=== PATIENT | female | born 1965 | race Caucasian/White ===

== ENCOUNTER 2017-11-29 17:18 | Emergency (ER) | payer MEDICARE ==
[~2017-11-29] VITALS: Ht 162.6 cm; Wt 81.6 kg
[2017-11-29 17:25] VITALS: BP 163/127
== END 2017-11-29 19:28 | disposition home or self-care (01) ==
LOC: ED 19:22
DX: S40.011A Contusion of right shoulder, initial encounter (principal); S50.11XA Contusion of right forearm, initial encounter; F17.200 Nicotine dependence, unspecified, uncomplicated; W22.8XXA Striking against or struck by other objects, initial encounter; Y93.89 Activity, other specified; Y92.099 Unspecified place in other non-institutional residence as the place of occurrence of the external cause; Y99.8 Other external cause status
CPT/HCPCS: 99284

== ENCOUNTER 2019-03-25 10:58 | Inpatient (IN) | payer MEDICARE, MEDICAID ==
[~2019-03-25] VITALS: Ht 162.6 cm; Wt 72.0 kg
--- NOTE | 2019-03-25 11:45 | NUR ---
PT HERE WITH C/O DIABETIC ULCER ON FOOT WITH + PURULENT DRAINAGE. PT ARRIVED TO ROOM VIA WHEELCHAIR, PT CONFUSED AND UNSTEADY GAIT, INTERMITTENTLY DOZING OFF. FS TAKEN BY THIS RN ON HOSPITAL GLUCOMETER REVEALED FS OF 409. PT STATES PO MEDS TO CONTROL DM. PT STATES WOUND ON FOOT X 3 WEEKS, DRAINAGE X 2 DAYS, FEVER X 2 DAYS. PT DRESSED IN GOWN AND ATTACHED TO ALL MONITORS. PA AT BEDSIDE.
[2019-03-25 12:00] LABS: MEAN CORPUSCULAR HEMOGLOBIN 29.3 pg (27.0-34.8); MEAN CORPUSCULAR HGB CONC 33.4 g/dL (32.4-35.8); MEAN CORPUSCULAR VOLUME 87.5 fL (80-100); PLATELET COUNT 279 x10^3/uL (130-400); RED BLOOD COUNT 5.38 x10^6/uL (3.82-5.3); RED CELL DISTRIBUTION WIDTH 13.8 % (9.6-15.2)
[2019-03-25] MEDS ORDERED: CLINDAMYCIN PMX 600MG/50ML 50 ML IVPB ONE (12:00)
[2019-03-25 12:13] LABS: ALBUMIN 3.5 g/dL (3.4-5.0); ANION GAP 7 mmol/L (5-15); CALCIUM 9.4 mg/dL (8.5-10.1); CHLORIDE 96 mmol/L (98-107); CREATININE 1.44 mg/dL (0.55-1.02)
--- NOTE | 2019-03-25 12:16 | NUR ---
MICHELINE ESTABLISHED BY
--- NOTE | 2019-03-25 12:18 | NUR ---
PT PLACED ON 2 L NC FOR O2 SATS 88-91% ON ROOM AIR.
[2019-03-25] MEDS ORDERED: NEOSPORIN OINT. PKT 1 PACKET ONE (12:28)
[2019-03-25] MEDS ORDERED: SODIUM CHLORIDE FLUSH 10ML SYR IVF ONE (12:30)
[2019-03-25 12:32] LABS: BASOPHILS % (AUTO) 0 % (0-1); EOSINOPHILS % (AUTO) 0 % (1-7); LYMPHOCYTES # (AUTO) 0.94 x10^3/uL (1-3.4); LYMPHOCYTES % (AUTO) 5 % (22-44); MD SCAN; MONOCYTES # (AUTO) 0.52 x10^3/uL (0.2-0.8); MONOCYTES % (AUTO) 3 % (2-9); NEUTROPHILS # (AUTO) 16.35 x10^3/uL (1.8-6.8); NEUTROPHILS % (AUTO) 92 % (42-75)
[2019-03-25] MEDS ORDERED: CLINDAMYCIN PMX 600MG/50ML 50 ML ONE (12:33)
--- NOTE | 2019-03-25 12:49 | NUR ---
LAB AT BEDSIDE AND BOTH SETS OF BC DRAWN. PINK ARMBAND PLACED ON PT. PT MEDICATED WITH IV ABX AND IVF INFUSING PER ORDER.
[2019-03-25 12:54] LABS: ACETONE, SERUM Negative (Negative)
[2019-03-25] MEDS ORDERED: DM MEDICATION (12:56)
[2019-03-25] MEDS ORDERED: PREG100C PO (12:56)
[2019-03-25] MEDS ORDERED: DULO20CA45 PO (12:56)
--- NOTE | 2019-03-25 12:56 | NUR ---
MED REC ATTEMPTED TO BE COMPLETED.
[2019-03-25] MEDS ORDERED: SODIUM CHLORIDE 0.9% 1,000ML IVBOLUS ONE (13:00)
--- NOTE | 2019-03-25 13:16 | NUR ---
CLINDAMYCIN INFUSING PER MD ORDER, DISCUSSED WITH MD ABOUT NEED FOR SECOND IV THERAPY, PT HAS MULTIPLE ALLERGIES TO ABX. MD TO DISCUSS WITH PHARMACY.
[2019-03-25] MEDS ORDERED: ERTAPENEM 1 GM in SODIUM CHLORIDE 0.9% 50 ML IV ONE (13:30)
[2019-03-25] MEDS ORDERED: SODIUM CHLORIDE FLUSH 10ML SYR IVF PRN (13:30)
--- NOTE | 2019-03-25 13:56 | NUR ---
IV ABX ARRIVED DAMAGED, NEW ONE RECEIVED FROM PHARMACY. PT ASLEEP ON KARMEN LUCERO, REPORT GIVEN TO EARLINE ARANGO. PT TO TRANSFER TO INPATIENT STATUS.
--- NOTE | 2019-03-25 14:05 | NUR ---
SECOND ABX INFUSING PER ORDER.
[2019-03-25 15:02] VITALS: BP 92/61
[2019-03-25] MEDS ORDERED: hydrALAzine 20 MG/ML, 1ML IVPush PRN (16:00)
[2019-03-25] MEDS ORDERED: POLYETHYLENE GLYCOL 17 GM PACKET NG PRN (16:00)
[2019-03-25] MEDS ORDERED: SENNA/DOCUSATE TABLET PO PRN (16:00)
[2019-03-25] MEDS ORDERED: LABETALOL 5 MG/ML SYR. (IV ONLY) IVPush PRN (16:00)
[2019-03-25] MEDS ORDERED: ONDANSETRON ODT 4 MG PO PRN (16:00)
[2019-03-25 16:05] LABS: HCT (SEDRATE) 42.5 % (34.6-47.8)
[2019-03-25] MEDS ORDERED: PREG150C PO (16:41)
[2019-03-25] MEDS ORDERED: DULO30CA2 PO (16:41)
[2019-03-25] MEDS ORDERED: TIZA2TAB2 PO (16:41)
[2019-03-25] MEDS ORDERED: MONT10TA9 PO (16:41)
[2019-03-25 16:58] LABS: HEMOGLOBIN A1C 10.9 % (4.2-6.3)
[2019-03-25] MEDS ORDERED: GLUCAGON 1 MG IM PRN (18:30)
[2019-03-25] MEDS ORDERED: DEXTROSE 4 GM TAB.CHEW PO PRN (18:30)
[2019-03-25] MEDS ORDERED: DEXTROSE 50%, 50ML SYRINGE IVPush PRN (18:30)
[2019-03-25 19:04] VITALS: BP 113/79
[2019-03-25] MEDS: PREGABALIN 150 MG CAPSULE PO SCH ×2 (19:39→21:00)
[2019-03-25] MEDS: ACETAMINOPHEN 325 MG TABLET PO PRN (20:33)
[2019-03-25] MEDS: INSULIN LISPRO 100 UNITS/ML, PEN SQ-INSULIN SCH (20:33)
[2019-03-25] MEDS: SODIUM CHLORIDE FLUSH 10ML SYR IVF SCH (20:33)
[2019-03-25] MEDS ORDERED: SODIUM CHLORIDE 0.9% 1,000 ML IV SCH (22:30)
[2019-03-25] MEDS: CLINDAMYCIN PMX 600MG/50ML 50 ML IV SCH (23:06)
[2019-03-26] MEDS: LEVOFLOXACIN/PMX 750MG/150ML 150 ML IV SCH ×2 (00:24→23:58)
[2019-03-26 02:21] VITALS: BP 106/67
[2019-03-26 05:34] LABS: BASOPHILS # (AUTO) 0.03 x10^3/uL (0-0.1); BASOPHILS % (AUTO) 0 % (0-1); EOSINOPHILS # (AUTO) 0.06 x10^3/uL (0-0.4); EOSINOPHILS % (AUTO) 1 % (1-7); LYMPHOCYTES % (AUTO) 16 % (22-44); MD NO; MEAN CORPUSCULAR HEMOGLOBIN 29.2 pg (27.0-34.8); MEAN CORPUSCULAR HGB CONC 33.1 g/dL (32.4-35.8); MEAN PLATELET VOLUME 9.5 fL (7.4-10.4); MONOCYTES # (AUTO) 0.79 x10^3/uL (0.2-0.8); MONOCYTES % (AUTO) 9 % (2-9); NEUTROPHILS # (AUTO) 6.67 x10^3/uL (1.8-6.8); NEUTROPHILS % (AUTO) 75 % (42-75); PLATELET COUNT 219 x10^3/uL (130-400); RED BLOOD COUNT 4.88 x10^6/uL (3.82-5.3); RED CELL DISTRIBUTION WIDTH 13.5 % (9.6-15.2)
[2019-03-26 05:49] LABS: CHLORIDE 102 mmol/L (98-107)
[2019-03-26] MEDS: ACETAMINOPHEN 325 MG TABLET PO PRN ×2 (05:49→21:01)
[2019-03-26 05:54] LABS: ANION GAP 7 mmol/L (5-15); CALCIUM 8.8 mg/dL (8.5-10.1); CREATININE 0.81 mg/dL (0.55-1.02)
[2019-03-26] MEDS: CLINDAMYCIN PMX 600MG/50ML 50 ML IV SCH ×3 (06:31→22:22)
[2019-03-26 07:13] VITALS: BP 108/72
[2019-03-26] MEDS: INSULIN LISPRO 100 UNITS/ML, PEN SQ-INSULIN SCH ×4 (08:57→20:56)
[2019-03-26] MEDS: PREGABALIN 150 MG CAPSULE PO SCH ×2 (10:59→20:56)
[2019-03-26] MEDS: SODIUM CHLORIDE FLUSH 10ML SYR IVF SCH ×2 (11:00→20:57)
[2019-03-26 12:15] VITALS: BP 90/61
[2019-03-26 17:38] VITALS: BP 125/82
[2019-03-26 18:41] VITALS: BP 102/70
[2019-03-27 00:37] VITALS: BP 104/61
[2019-03-27 05:41] LABS: ANION GAP 7 mmol/L (5-15); CALCIUM 8.8 mg/dL (8.5-10.1); CHLORIDE 106 mmol/L (98-107)
[2019-03-27 05:55] LABS: BASOPHILS # (AUTO) 0.03 x10^3/uL (0-0.1); BASOPHILS % (AUTO) 1 % (0-1); EOSINOPHILS # (AUTO) 0.23 x10^3/uL (0-0.4); EOSINOPHILS % (AUTO) 4 % (1-7); LYMPHOCYTES # (AUTO) 2.48 x10^3/uL (1-3.4); LYMPHOCYTES % (AUTO) 39 % (22-44); MD NO; MEAN CORPUSCULAR HEMOGLOBIN 28.8 pg (27.0-34.8); MEAN CORPUSCULAR HGB CONC 33.1 g/dL (32.4-35.8); MEAN CORPUSCULAR VOLUME 86.9 fL (80-100); MEAN PLATELET VOLUME 9.1 fL (7.4-10.4); MONOCYTES # (AUTO) 0.84 x10^3/uL (0.2-0.8); MONOCYTES % (AUTO) 13 % (2-9); NEUTROPHILS % (AUTO) 43 % (42-75); PLATELET COUNT 233 x10^3/uL (130-400); RED BLOOD COUNT 4.94 x10^6/uL (3.82-5.3); RED CELL DISTRIBUTION WIDTH 13.9 % (9.6-15.2)
[2019-03-27] MEDS: CLINDAMYCIN PMX 600MG/50ML 50 ML IV SCH ×3 (06:08→23:09)
[2019-03-27] MEDS: INSULIN LISPRO 100 UNITS/ML, PEN SQ-INSULIN SCH ×4 (08:29→21:00)
[2019-03-27] MEDS: PREGABALIN 150 MG CAPSULE PO SCH ×2 (08:30→20:59)
[2019-03-27] MEDS: SODIUM CHLORIDE FLUSH 10ML SYR IVF SCH ×2 (08:31→20:59)
[2019-03-27 08:43] VITALS: BP 102/72
[2019-03-27 12:42] VITALS: BP 108/74
[2019-03-27] MEDS: LACTOBACILLUS CHEW TABLET PO SCH ×2 (16:40→20:59)
[2019-03-27 19:31] VITALS: BP 107/70
[2019-03-27] MEDS ORDERED: INSULIN GLARGINE 100 UNITS/ML, PEN SQ-INSULIN SCH (21:00)
[2019-03-28 00:24] VITALS: BP 136/77
[2019-03-28] MEDS: LEVOFLOXACIN/PMX 750MG/150ML 150 ML IV SCH (00:53)
[2019-03-28] MEDS: CLINDAMYCIN PMX 600MG/50ML 50 ML IV SCH ×2 (07:20→15:00)
[2019-03-28 07:52] VITALS: BP 104/72
[2019-03-28] MEDS: PREGABALIN 150 MG CAPSULE PO SCH (08:18)
[2019-03-28] MEDS: INSULIN LISPRO 100 UNITS/ML, PEN SQ-INSULIN SCH ×2 (08:19→12:52)
[2019-03-28] MEDS: SODIUM CHLORIDE FLUSH 10ML SYR IVF SCH (08:19)
[2019-03-28] MEDS: LACTOBACILLUS CHEW TABLET PO SCH (10:33)
[2019-03-28] MEDS ORDERED: LEVO750T26 PO (13:56)
[2019-03-28] MEDS ORDERED: LEVOFLOXACIN 750 MG TABLET PO SCH (21:00)
== END 2019-03-28 18:06 | disposition home or self-care (01) | DRG 871 ==
LOC: ED 13:17 → EDIP 13:18 → 4WST 13:19 → ED 13:58
PROVIDERS: ADMIT Internal Medicine; ATTEND Family Medicine
DX: A40.1 Sepsis due to streptococcus, group B (principal); N17.0 Acute kidney failure with tubular necrosis; L03.115 Cellulitis of right lower limb; L03.116 Cellulitis of left lower limb; Z16.29 Resistance to other single specified antibiotic; R65.20 Severe sepsis without septic shock; Z88.0 Allergy status to penicillin; Z88.2 Allergy status to sulfonamides; E11.40 Type 2 diabetes mellitus with diabetic neuropathy, unspecified; E11.65 Type 2 diabetes mellitus with hyperglycemia; M20.12 Hallux valgus (acquired), left foot
CPT/HCPCS: 36415; 80048; 82010; 82040; 82800; 82962; 83036; 83605; 83735; 84100; 85025; 85651; 87040; 87070; 87077; 87081; 87147; 87181; 87186; 87205; 96365; G0378; J1335; J1956; J1815; J7030

== ENCOUNTER 2020-10-13 10:23 | Inpatient (IN) | payer OTHER, MEDICARE ==
[~2020-10-13] VITALS: Ht 167.6 cm; Wt 83.9 kg
[~2020-10-13 10:23] MED LIST: ALBU0.63 NEB; CLIN300C9 PO; DM MEDICATION; DULO20CA45 PO; DULO30CA2 PO; GLIP5TAB10 PO; IPRA4AER INH; LEVO750T26 PO; MONT10TA17 PO; PREG100C PO; PREG150C PO; SITA100T PO; TIZA-106 PO
[2020-10-13] MEDS ORDERED: ALBUTEROL SULFATE 2.5 MG/3 ML NPPB SCH (11:00)
[2020-10-13] MEDS ORDERED: ALBUTEROL SULFATE 2.5 MG/3 ML ONE ×2 (11:03→11:04)
--- NOTE | 2020-10-13 11:05 | NUR ---
PT AMBULATORY TO ROOM W/ C/O "I CAN'T BREATHE. IT FEELS LIKE WHEN I HAVE AN ASTHMA ATTACK". PT STATES HX ASTHMA AND PT STATES SHE ALSO SMOKES CIGARETTES. PT RESTING ON GURNEY. ODOM. MONITORS APPLIED. VSS. WARM BLANKET PROVIDED. Addendum: 10/13/20 at 1113 by BNICHOLS PT STATES SOB X 2 WEEKS. PT SPEAKING IN FULL SENTENCES.
[2020-10-13 11:27] LABS: BASOPHILS % (AUTO) 1 % (0-1); EOSINOPHILS % (AUTO) 0 % (1-7); LYMPHOCYTES % (AUTO) 17 % (22-44); MEAN CORPUSCULAR HGB CONC 33.3 g/dL (32.4-35.8); MEAN PLATELET VOLUME 9.3 fL (7.4-10.4); MONOCYTES % (AUTO) 6 % (2-9); NEUTROPHILS % (AUTO) 76 % (42-75); PLATELET COUNT 310 x10^3/uL (130-400); RED BLOOD COUNT 4.74 x10^6/uL (3.82-5.3); RED CELL DISTRIBUTION WIDTH 14.5 % (9.6-15.2)
--- NOTE | 2020-10-13 11:38 | NUR ---
PT SLEEPING ON GURNEY. NOTED TO BE 83% RA. PT WOKEN UP SATING 85% RA. ERP DR. TRUJILLO NOTIFIED.
[2020-10-13 11:39] LABS: ALBUMIN 3.3 g/dL (3.4-5.0); ANION GAP 4 mmol/L (5-15); CALCIUM 8.9 mg/dL (8.5-10.1); CHLORIDE 103 mmol/L (98-107)
[2020-10-13 11:44] LABS: ALANINE AMINOTRANSFERASE 15 U/L (12-78); ALKALINE PHOSPHATASE 136 U/L (45-117); BILIRUBIN,TOTAL 0.5 mg/dL (0.2-1.0); CREATININE 1.04 mg/dL (0.55-1.02); TOTAL PROTEIN 8.1 g/dL (6.4-8.2); TROPONIN I < 0.015 ng/mL (0.000-0.045)
[2020-10-13 11:49] LABS: MD SCAN
--- NOTE | 2020-10-13 11:51 | NUR ---
PT RESTING ON JAZMINE. ILENE. DILCIAS. AWARE OF POC FOR ADMISSION AND IS AGREEABLE.
[2020-10-13] MEDS ORDERED: SODIUM CHLORIDE 0.9% 1,000ML IVBOLUS ONE (12:30)
[2020-10-13] MEDS ORDERED: CEFTRIAXONE 1,000 MG in DEXTROSE 5% 50 ML IVPB ONE (12:30)
--- NOTE | 2020-10-13 12:47 | NUR ---
PT RESTING ON GURNEY. NADN. PERAZA.
--- NOTE | 2020-10-13 12:57 | NUR ---
REPORT GIVEN TO EARLINE NAJERA.
--- NOTE | 2020-10-13 13:06 | NUR ---
REPORT FROM EDGARDO PATTEN. ASSUMING CARE OF PT. PT UP TO AND BACK TO BED FROM BATHROOM WITH STEADY GAIT. VSS. NADN. REQUESTING FOOD. ROOMMATE AT BEDSIDE.
[2020-10-13] MEDS: LACTATED RINGERS 1,000 ML IV SCH (14:00)
[2020-10-13] MEDS ORDERED: ONDANSETRON ODT 4 MG PO PRN (14:00)
[2020-10-13] MEDS ORDERED: ONDANSETRON 2MG/ML, 2ML IVPush PRN (14:00)
--- NOTE | 2020-10-13 14:03 | NUR ---
REPORT CALLED TO NASIR PATTEN. PT READY FOR TRANSFER.
[2020-10-13 14:23] VITALS: BP 159/87
[2020-10-13] MEDS: ENOXAPARIN 40 MG/0.4 ML SQ SCH (14:53)
[2020-10-13] MEDS: methylPREDNISolone SOD SUCC 125 MG/2 ML IVPush SCH ×2 (14:53→22:46)
[2020-10-13] MEDS ORDERED: ALBUTEROL/IPRATROPIUM 2.5MG/0.5MG, 3 ML ONE (16:40)
[2020-10-13] MEDS: ALBUTEROL/IPRATROPIUM 2.5MG/0.5MG, 3 ML NPPB SCH ×2 (16:48→19:17)
[2020-10-13 19:00] VITALS: BP 188/92
[2020-10-13] MEDS: hydrALAzine 20 MG/ML, 1ML IV PRN (19:45)
[2020-10-13 19:46] VITALS: BP 176/91
[2020-10-13] MEDS: PREGABALIN 150 MG CAPSULE PO SCH (20:25)
[2020-10-13] MEDS: TIZANIDINE 4MG TABLET PO PRN (20:25)
[2020-10-13] MEDS: DULOXETINE 30 MG CAPSULE.DR PO SCH (20:26)
[2020-10-13] MEDS: OMEPRAZOLE 20 MG CAPSULE.DR PO SCH (20:26)
[2020-10-13 20:27] VITALS: BP 168/97
[2020-10-13 22:46] VITALS: BP 142/58
[2020-10-13] MEDS ORDERED: DULO20CA45 PO (23:21)
[2020-10-13] MEDS ORDERED: TIZA4TAB2 PO (23:23)
[2020-10-13] MEDS ORDERED: OMEP-110 PO (23:25)
[2020-10-14 00:42] VITALS: BP 132/57
[2020-10-14] MEDS: LACTATED RINGERS 1,000 ML IV SCH ×2 (04:02→16:40)
[2020-10-14 05:42] LABS: BASOPHILS % (AUTO) 0 % (0-1); EOSINOPHILS % (AUTO) 0 % (1-7); LYMPHOCYTES % (AUTO) 14 % (22-44); MEAN CORPUSCULAR HEMOGLOBIN 28.6 pg (27.0-34.8); MEAN CORPUSCULAR HGB CONC 32.8 g/dL (32.4-35.8); MEAN PLATELET VOLUME 9.6 fL (7.4-10.4); MONOCYTES % (AUTO) 2 % (2-9); NEUTROPHILS % (AUTO) 84 % (42-75); PLATELET COUNT 276 x10^3/uL (130-400); RED BLOOD COUNT 4.59 x10^6/uL (3.82-5.3); RED CELL DISTRIBUTION WIDTH 14.9 % (9.6-15.2)
[2020-10-14 05:43] LABS: MD NO
[2020-10-14 05:50] LABS: CHLORIDE 103 mmol/L (98-107)
[2020-10-14 06:12] LABS: ANION GAP 7 mmol/L (5-15); CALCIUM 9.8 mg/dL (8.5-10.1); CREATININE 0.87 mg/dL (0.55-1.02)
[2020-10-14] MEDS: OMEPRAZOLE 20 MG CAPSULE.DR PO SCH ×2 (06:15→17:02)
[2020-10-14] MEDS: methylPREDNISolone SOD SUCC 125 MG/2 ML IVPush SCH ×3 (06:15→22:21)
[2020-10-14] MEDS: ALBUTEROL/IPRATROPIUM 2.5MG/0.5MG, 3 ML NPPB SCH ×4 (07:00→19:31)
[2020-10-14 07:19] VITALS: BP 167/111
[2020-10-14] MEDS: PREGABALIN 150 MG CAPSULE PO SCH ×2 (08:24→20:28)
[2020-10-14] MEDS: DULOXETINE 30 MG CAPSULE.DR PO SCH ×2 (08:25→20:28)
[2020-10-14] MEDS: INSULIN LISPRO 100 UNITS/ML, PEN SQ-INSULIN SCH ×6 (08:27→20:32)
[2020-10-14] MEDS: TIZANIDINE 4MG TABLET PO PRN ×2 (08:32→20:37)
[2020-10-14] MEDS ORDERED: LINAGLIPTIN 5 MG TAB PO SCH (09:00)
[2020-10-14] MEDS ORDERED: SITAGLIPTIN 100 MG PO SCH (09:00)
[2020-10-14] MEDS ORDERED: VANCOMYCIN PER PHARMACY MC PRN (11:00)
[2020-10-14] MEDS ORDERED: GADOTERATE 10 MMOL/20ML SYR ONE (11:05)
[2020-10-14] MEDS ORDERED: PHARMACOKINETIC MONITORING MC PRN (11:30)
[2020-10-14] MEDS ORDERED: VANCOMYCIN 2,000 MG in SODIUM CHLORIDE 0.9% 500 ML IV ONE (11:30)
[2020-10-14] MEDS ORDERED: PHARMACOKINETIC CONSULTATION MC ONE (11:30)
[2020-10-14] MEDS: INSULIN GLARGINE 100 UNITS/ML, PEN SQ-INSULIN SCH ×2 (12:15→20:32)
[2020-10-14 12:27] VITALS: BP 122/68
[2020-10-14] MEDS: ENOXAPARIN 40 MG/0.4 ML SQ SCH (14:21)
[2020-10-14 19:51] VITALS: BP 164/84
[2020-10-14] MEDS: ACETAMINOPHEN 325 MG TABLET PO PRN (23:13)
[2020-10-15 00:43] VITALS: BP 156/84
[2020-10-15] MEDS: LACTATED RINGERS 1,000 ML IV SCH (02:10)
[2020-10-15] MEDS ORDERED: VANCOMYCIN 1,600 MG in SODIUM CHLORIDE 0.9% 250 ML IV SCH ×2 (05:00)
[2020-10-15] MEDS: OMEPRAZOLE 20 MG CAPSULE.DR PO SCH ×2 (06:05→16:16)
[2020-10-15] MEDS: methylPREDNISolone SOD SUCC 125 MG/2 ML IVPush SCH (06:05)
[2020-10-15 06:38] LABS: BASOPHILS % (AUTO) 0 % (0-1); EOSINOPHILS % (AUTO) 0 % (1-7); LYMPHOCYTES % (AUTO) 8 % (22-44); MEAN CORPUSCULAR HEMOGLOBIN 28.5 pg (27.0-34.8); MEAN CORPUSCULAR HGB CONC 32.7 g/dL (32.4-35.8); MEAN PLATELET VOLUME 9.3 fL (7.4-10.4); MONOCYTES % (AUTO) 3 % (2-9); NEUTROPHILS % (AUTO) 89 % (42-75); PLATELET COUNT 296 x10^3/uL (130-400); RED BLOOD COUNT 4.45 x10^6/uL (3.82-5.3); RED CELL DISTRIBUTION WIDTH 14.9 % (9.6-15.2)
[2020-10-15 06:42] LABS: MD SCAN
[2020-10-15 06:49] VITALS: BP 181/99
[2020-10-15 06:52] LABS: ANION GAP 6 mmol/L (5-15); CALCIUM 9.2 mg/dL (8.5-10.1); CHLORIDE 105 mmol/L (98-107); CREATININE 0.94 mg/dL (0.55-1.02)
[2020-10-15] MEDS: ALBUTEROL/IPRATROPIUM 2.5MG/0.5MG, 3 ML NPPB SCH ×2 (07:00→10:50)
[2020-10-15] MEDS: PREGABALIN 150 MG CAPSULE PO SCH ×2 (07:34→21:29)
[2020-10-15] MEDS: DULOXETINE 30 MG CAPSULE.DR PO SCH ×2 (07:34→21:29)
[2020-10-15] MEDS: hydrALAzine 20 MG/ML, 1ML IV PRN ×2 (07:37→21:29)
[2020-10-15] MEDS: INSULIN LISPRO 100 UNITS/ML, PEN SQ-INSULIN SCH ×7 (07:48→21:43)
[2020-10-15] MEDS: INSULIN GLARGINE 100 UNITS/ML, PEN SQ-INSULIN SCH ×2 (08:26→21:43)
[2020-10-15] MEDS: FLUTICASONE/VILANTEROL 100-25MCG/INH INH SCH (09:00)
[2020-10-15] MEDS ORDERED: ALBUTEROL/IPRATROPIUM 2.5MG/0.5MG, 3 ML NPPB SCH (11:00)
[2020-10-15] MEDS ORDERED: ALBUTEROL/IPRATROPIUM 2.5MG/0.5MG, 3 ML NPPB PRN (11:30)
[2020-10-15 14:09] VITALS: BP 165/91
[2020-10-15] MEDS: ENOXAPARIN 40 MG/0.4 ML SQ SCH (14:13)
[2020-10-15] MEDS: ACETAMINOPHEN 325 MG TABLET PO PRN (14:20)
[2020-10-15 20:52] VITALS: BP 203/99
[2020-10-15] MEDS: TIZANIDINE 4MG TABLET PO PRN (21:29)
[2020-10-15 23:07] VITALS: BP 145/81
[2020-10-16 01:19] VITALS: BP 150/93
[2020-10-16] MEDS: OMEPRAZOLE 20 MG CAPSULE.DR PO SCH ×2 (05:46→15:58)
[2020-10-16 06:09] LABS: ANION GAP 6 mmol/L (5-15); CALCIUM 9.1 mg/dL (8.5-10.1); CHLORIDE 105 mmol/L (98-107); CREATININE 0.79 mg/dL (0.55-1.02)
[2020-10-16 06:13] LABS: BASOPHILS % (AUTO) 0 % (0-1); EOSINOPHILS % (AUTO) 0 % (1-7); LYMPHOCYTES % (AUTO) 19 % (22-44); MEAN CORPUSCULAR HEMOGLOBIN 28.8 pg (27.0-34.8); MEAN CORPUSCULAR HGB CONC 33.3 g/dL (32.4-35.8); MEAN PLATELET VOLUME 8.8 fL (7.4-10.4); MONOCYTES % (AUTO) 7 % (2-9); NEUTROPHILS % (AUTO) 74 % (42-75); PLATELET COUNT 334 x10^3/uL (130-400); RED BLOOD COUNT 4.66 x10^6/uL (3.82-5.3); RED CELL DISTRIBUTION WIDTH 14.8 % (9.6-15.2)
[2020-10-16] MEDS ORDERED: POTASSIUM CHLORIDE 20 MEQ TAB.ER.PRT PO ONE (07:00)
[2020-10-16] MEDS: INSULIN LISPRO 100 UNITS/ML, PEN SQ-INSULIN SCH ×7 (07:00→20:22)
[2020-10-16 07:03] LABS: MD NO
[2020-10-16 07:16] VITALS: BP 169/100
[2020-10-16] MEDS: PREGABALIN 150 MG CAPSULE PO SCH ×2 (08:30→20:21)
[2020-10-16] MEDS: DULOXETINE 30 MG CAPSULE.DR PO SCH ×2 (08:30→20:21)
[2020-10-16] MEDS: INSULIN GLARGINE 100 UNITS/ML, PEN SQ-INSULIN SCH ×2 (08:31→20:21)
[2020-10-16] MEDS: FLUTICASONE/VILANTEROL 100-25MCG/INH INH SCH (08:58)
[2020-10-16] MEDS: ALBUTEROL/IPRATROPIUM 2.5MG/0.5MG, 3 ML NPPB SCH (08:58)
[2020-10-16] MEDS ORDERED: CEFTRIAXONE 2 GM in DEXTROSE 5% 50 ML IVPB SCH (11:30)
[2020-10-16] MEDS: CEFDINIR 300 MG CAPSULE PO SCH ×2 (11:35→22:25)
[2020-10-16] MEDS ORDERED: GUAIFENESIN/DM 200-20MG, 10ML UDC PO PRN (12:00)
[2020-10-16 13:14] VITALS: BP 138/79
[2020-10-16] MEDS: ENOXAPARIN 40 MG/0.4 ML SQ SCH (14:11)
[2020-10-16 20:00] VITALS: BP 163/84
[2020-10-16] MEDS: TIZANIDINE 4MG TABLET PO PRN (20:21)
[2020-10-17 00:30] VITALS: BP_SYST 182; BP_SYST 183; BP_DIAS 114; BP_DIAS 96
[2020-10-17] MEDS ORDERED: LISINOPRIL 10 MG TABLET PO ONE (01:00)
[2020-10-17 02:54] VITALS: BP 196/110
[2020-10-17 04:41] VITALS: BP 169/96
[2020-10-17 05:48] LABS: BASOPHILS % (AUTO) 0 % (0-1); EOSINOPHILS % (AUTO) 0 % (1-7); LYMPHOCYTES % (AUTO) 27 % (22-44); MEAN CORPUSCULAR HEMOGLOBIN 28.3 pg (27.0-34.8); MEAN CORPUSCULAR HGB CONC 32.9 g/dL (32.4-35.8); MEAN PLATELET VOLUME 8.5 fL (7.4-10.4); MONOCYTES % (AUTO) 8 % (2-9); NEUTROPHILS % (AUTO) 65 % (42-75); PLATELET COUNT 334 x10^3/uL (130-400); RED BLOOD COUNT 5.15 x10^6/uL (3.82-5.3); RED CELL DISTRIBUTION WIDTH 14.8 % (9.6-15.2)
[2020-10-17 05:50] LABS: MD NO
[2020-10-17 05:56] LABS: ANION GAP 5 mmol/L (5-15); CHLORIDE 105 mmol/L (98-107); CREATININE 0.78 mg/dL (0.55-1.02)
[2020-10-17] MEDS: OMEPRAZOLE 20 MG CAPSULE.DR PO SCH ×2 (06:08→16:01)
[2020-10-17 06:58] VITALS: BP 186/102
[2020-10-17] MEDS: DULOXETINE 30 MG CAPSULE.DR PO SCH ×2 (07:51→20:24)
[2020-10-17] MEDS: TIZANIDINE 4MG TABLET PO PRN ×2 (07:51→20:24)
[2020-10-17] MEDS: AMLODIPINE 10 MG TAB PO SCH (07:51)
[2020-10-17] MEDS: PREGABALIN 150 MG CAPSULE PO SCH ×2 (07:51→20:24)
[2020-10-17] MEDS: INSULIN LISPRO 100 UNITS/ML, PEN SQ-INSULIN SCH ×7 (07:52→20:32)
[2020-10-17] MEDS: INSULIN GLARGINE 100 UNITS/ML, PEN SQ-INSULIN SCH ×2 (07:53→20:32)
[2020-10-17] MEDS: ALBUTEROL/IPRATROPIUM 2.5MG/0.5MG, 3 ML NPPB SCH (09:57)
[2020-10-17] MEDS: FLUTICASONE/VILANTEROL 100-25MCG/INH INH SCH (09:57)
[2020-10-17 12:05] VITALS: BP 148/85
[2020-10-17] MEDS: CEFDINIR 300 MG CAPSULE PO SCH ×2 (12:36→23:53)
[2020-10-17] MEDS: ENOXAPARIN 40 MG/0.4 ML SQ SCH (12:36)
[2020-10-17] MEDS ORDERED: POTASSIUM CHLORIDE 10% 40 MEQ/30 ML UDC PO ONE (14:00)
[2020-10-17 19:36] VITALS: BP 167/92
[2020-10-17] MEDS: ENALAPRIL 2.5MG TABLET PO SCH (20:24)
[2020-10-18 00:38] VITALS: BP 158/95
[2020-10-18] MEDS: OMEPRAZOLE 20 MG CAPSULE.DR PO SCH ×2 (05:54→16:09)
[2020-10-18 06:36] VITALS: BP 147/86
[2020-10-18] MEDS: PREGABALIN 150 MG CAPSULE PO SCH (08:22)
[2020-10-18] MEDS: DULOXETINE 30 MG CAPSULE.DR PO SCH (08:22)
[2020-10-18] MEDS: ENALAPRIL 2.5MG TABLET PO SCH (08:23)
[2020-10-18] MEDS: AMLODIPINE 10 MG TAB PO SCH (08:23)
[2020-10-18] MEDS: FLUTICASONE/VILANTEROL 100-25MCG/INH INH SCH (08:24)
[2020-10-18] MEDS: INSULIN LISPRO 100 UNITS/ML, PEN SQ-INSULIN SCH ×6 (08:25→16:31)
[2020-10-18] MEDS: INSULIN GLARGINE 100 UNITS/ML, PEN SQ-INSULIN SCH (08:27)
[2020-10-18] MEDS: ALBUTEROL/IPRATROPIUM 2.5MG/0.5MG, 3 ML NPPB SCH (08:55)
[2020-10-18 12:22] VITALS: BP 131/74
[2020-10-18] MEDS: CEFDINIR 300 MG CAPSULE PO SCH (12:37)
[2020-10-18] MEDS: ENOXAPARIN 40 MG/0.4 ML SQ SCH (15:00)
[2020-10-18 16:10] VITALS: BP 138/84
[2020-10-18] MEDS ORDERED: CEFD300C37 PO (17:40)
[2020-10-18] MEDS ORDERED: ENAL2.5T8 PO (17:40)
[2020-10-18] MEDS ORDERED: AMLO-211 PO (17:40)
[2020-10-18] MEDS ORDERED: PRED20TA PO (17:40)
[2020-10-18] MEDS ORDERED: DOXY100T PO (17:42)
== END 2020-10-18 18:10 | disposition home or self-care (01) | DRG 871 ==
LOC: ED 13:05 → 3N 13:06 → ED 13:19 → SUATTDRO 13:23
PROVIDERS: ADMIT Family Medicine; ATTEND Internal Medicine
DX: A41.9 Sepsis, unspecified organism (principal); J18.0 Bronchopneumonia, unspecified organism; J96.01 Acute respiratory failure with hypoxia; J44.0 Chronic obstructive pulmonary disease with (acute) lower respiratory infection; J44.1 Chronic obstructive pulmonary disease with (acute) exacerbation; J45.901 Unspecified asthma with (acute) exacerbation; Z20.822 Contact with and (suspected) exposure to COVID-19; E11.628 Type 2 diabetes mellitus with other skin complications; E11.65 Type 2 diabetes mellitus with hyperglycemia; E87.6 Hypokalemia; F17.200 Nicotine dependence, unspecified, uncomplicated; L03.032 Cellulitis of left toe; G89.29 Other chronic pain; I10 Essential (primary) hypertension; T38.0X5A Adverse effect of glucocorticoids and synthetic analogues, initial encounter; Z53.20 Procedure and treatment not carried out because of patient's decision for unspecified reasons; Z59.0 Homelessness; Y92.89 Other specified places as the place of occurrence of the external cause
CPT/HCPCS: 36415; 73620; 84145; 96365; 96366; 99285; J7613; 71045; 80048; 80053; 82962; 83605; 83735; 83880; 84484; 85025; 87040; 87070; 87205; 93005; 93922; 94640; G0378; J0696; J1650; J3370; U0005; A9575; J0360; J1815; J2930; J7030; J7040; J7050; J7120; J7512; U0003